=== PATIENT | male | born 1970 | race Caucasian/White ===

== ENCOUNTER 2016-12-10 19:04 | Emergency (ER) | payer SELFPAY ==
[~2016-12-10] VITALS: Ht 162.6 cm; Wt 56.0 kg
[~2016-12-10 19:04] MED LIST: LORT5TAB PO; Z.0.NO CURRENT MEDS
[2016-12-10 19:06] VITALS: BP 138/87; PULSE 85; RESP 16; TEMP 98.6; O2SAT 97
--- NOTE | 2016-12-10 19:15 | PD ---
Physical Exam Time Seen by Provider: 19:14 Narrative 46 y/o male with R-sided abdominal/flank pain for one day. +Vomiting. Vital signs reviewed. Seen at triage desk. Awaiting bed placement. Data Data Last Documented VS Vital Signs Date Time Temp Pulse Resp B/P Pulse Ox O2 Delivery O2 Flow Rate FiO2 12/10/16 19:06 98.6 85 16 138/87 97 Room Air [facility] Medical Record Reviewed: Yes Supervised Visit with JOSIE: Ray Steen Dec 10, 2016 19:15
== END 2016-12-10 21:30 | disposition left against medical advice (07) ==
LOC: NED 19:04
DX: R10.9 Unspecified abdominal pain (principal)
CPT/HCPCS: 99281